=== PATIENT | male | born 1995 | race Caucasian/White ===

== ENCOUNTER 2017-12-28 15:14 | Emergency (ER) | payer MEDICAID ==
[~2017-12-28] VITALS: Ht 182.9 cm; Wt 63.6 kg
[2017-12-28] MEDS ORDERED: PRED20TA PO (16:09)
[2017-12-28 16:14] VITALS: BP 138/83
== END 2017-12-28 16:17 | disposition home or self-care (01) ==
LOC: ER 15:15
DX: K50.90 Crohn's disease, unspecified, without complications (principal); Z79.899 Other long term (current) drug therapy
CPT/HCPCS: 99283

== ENCOUNTER 2022-02-18 07:05 | Emergency (ER) | payer MEDICAID ==
[~2022-02-18] VITALS: Ht 182.9 cm; Wt 68.0 kg
[2022-02-18 07:09] VITALS: BP 123/90
[2022-02-18] MEDS ORDERED: ketorolac trometh. 30mg/ml inj. IM ONE (09:15)
[2022-02-18] MEDS ORDERED: HYDROcodone/acetaminophen 10/325mg tab PO ONE (09:15)
[2022-02-18] MEDS ORDERED: clindamycin 150mg capsule PO ONE ×2 (09:15)
[2022-02-18] MEDS ORDERED: HYDR-3965 PO ×2 (09:34→09:50)
[2022-02-18] MEDS ORDERED: CLIN150C99 PO ×2 (09:34→09:50)
== END 2022-02-18 10:01 | disposition home or self-care (01) ==
LOC: ER 07:06
DX: K04.7 Periapical abscess without sinus (principal); K02.9 Dental caries, unspecified; R11.10 Vomiting, unspecified; Z79.2 Long term (current) use of antibiotics; Z79.899 Other long term (current) drug therapy
CPT/HCPCS: 96372; 99283; J1885